=== PATIENT | male | born 1965 | race Caucasian/White ===

== ENCOUNTER 2023-08-14 09:18 | Emergency (ER) | payer OTHER, SELFPAY ==
[2023-08-14 09:59] VITALS: BP 141/89; PULSE 96; RESP 16; TEMP 36.7; O2SAT 93; BMI 36.2
[2023-08-14 10:19] LABS: MANUAL DIFF FLAG NO
[2023-08-14 10:21] LABS: Basophils Percent Auto 0.4 % (0-2); Eosinophils Absolute Auto 0.1 X10*3/uL (0.0-0.4); Eosinophils Percent Auto 0.8 % (0-4); Hemoglobin 15.1 g/dl (14.0-18.0); Imm Gran Abs Auto 0.04 X10*3/uL (0.00-0.03); Imm Gran Pct Auto 0.4 % (0.0-0.4); Lymphocytes Absolute Auto 1.7 X10*3/uL (1.2-4.9); Lymphocytes Percent Auto 15.7 % (20-40); Mean Corpuscular HGB Conc 34.3 g/dl (31.0-36.0); Mean Corpuscular Hemoglobin 32.6 pg (27.0-33.0); Monocytes Absolute Auto 1.1 X10*3/uL (0.1-1.2); Neutrophils Absolute Auto 7.8 x10*3/uL (2.0-8.3); Neutrophils Percent Auto 72.7 % (45-73); Platelet Count 250 X10*3/uL (160-400); Red Blood Count 4.63 X10*6/uL (4.60-5.80); Red Cell Distribution Width 14.4 % (11.0-16.0); White Blood Count 10.7 X10*3/uL (4.8-10.8)
[2023-08-14 10:41] LABS: Alanine Aminotransferase 26 U/L (0-40); Albumin Level 3.9 g/dL (3.5-5.0); Alkaline Phosphatase 88 U/L (39-117); Anion Gap 12 (12-20); Aspartate Amino Transferase 15 U/L (5-37); Bilirubin Total 0.5 mg/dL (0.0-1.0); Blood Urea Nitrogen 12 mg/dL (9-16); C Reactive Protein 6.04 mg/dL (< or = 0.50); Calcium 8.9 mg/dL (8.4-10.2); Carbon Dioxide 27 mmol/L (22-29); Chloride 104 mmol/L (96-108); Estimated Glomerular Filt Rate > 60; Glucose Random 187 mg/dL (60-115); Potassium 3.9 mmol/L (3.3-5.1); Sodium 139 mmol/L (135-145); Total Protein 7.8 g/dL (6.5-8.0)
[2023-08-14 10:59] LABS: Erythrocyte Sedimentation Rate 20 MM/HR (0-15)
[2023-08-14 13:05] VITALS: BP 163/68; PULSE 95; RESP 14; TEMP 36.9; O2SAT 94
--- NOTE | 2023-08-14 13:59 | ED_ITS ---
HPI - General Adult General Chief complaint: Wound/Laceration Stated complaint: lump on back painful Time Seen by Provider: 08/14/23 13:59 History of Present Illness HPI narrative: The patient reports a a lump on his back that he has had for a few years. Over the last several days it has become painful. It has never been painful before. No fever. Related Data Previous Rx's ?Medication ?Instructions ?Recorded amoxicillin 875 mg-potassium 1 tab PO BID #20 tabs 08/14/23 clavulanate 125 mg tablet ibuprofen 600 mg tablet 600 mg PO Q6H PRN pain #14 tabs 08/14/23 Allergies Allergy/AdvReac Type Severity Reaction Status Date / Time lorazepam [From ATIVAN] Allergy Severe ANAPHYLAXIS Verified 08/14/23 10:00 Review of Systems 2 Review of Systems: Yes all other systems are reviewed and are negative [facility] Social History Social History Alcohol intake: current Alcohol intake frequency: 0-2 drinks per day Alcohol type: beer Smoked in Last 30 Days: Yes Substance Use Type: Marijuana Substance Use Frequency: Weekly Advance Directives: No Advance Directives Information Provided: No Do you have a plan to hurt others: No Plan Physical Exam ED Vital Signs: Vital Signs - 24 hr 08/14/23 09:59 08/14/23 13:05 08/14/23 15:48 Temperature 98.1 F 98.4 F 98.2 F Pulse Rate 96 95 80 Respiratory Rate 16 14 14 Blood Pressure 141/89 H 163/68 H 130/70 Pulse Oximetry 93 94 99 Oxygen Delivery Method Room Air Room Air Room Air BMI result Body Mass Index 36.2 Const Other: The patient is a very pleasant 58-year-old who was awake and alert does not appear toxic in any way. [facility] Other: Face is unremarkable, face is symmetrical, mucous membranes moist Eyes Other: Pupils are round equal, conjunctivae are clear Neck Other: Moving his neck easily Resp Effort & Inspection: normal respiratory effort Auscultation: clear to auscultation bilaterally Cardio Rate: regular rate Rhythm: regular rhythm Heart sounds: S1 normal heart sound present and S2 normal heart sound present Back/Spine/Pelvis Other: The patient has an obvious area of swelling at the right upper back in the right paraspinous region at around T8 through T10. The overall area of swelling is fairly large at about 10-12 cm. It is tender. There is a suggestion of fluctuance. Minimal erythema to the overlying skin. Skin Other: Large area of swelling on the back just to the right of the midline at about the T8-T10 level. Swelling is tender somewhat fluctuant. No significant erythema. Neuro Other: The patient is awake and alert with a normal mental status. His neck is supple. He moves his extremities normally. He is neurologically intact. Extrem Other: No peripheral edema Medications Administered Discontinued Medications Generic Name Dose Route Start Last Admin Trade Name Carrillo PRN Reason Stop Dose Admin Amoxicillin/Clavulanate Potassium 875 mg 08/14/23 15:32 08/14/23 15:47 Amoxicillin/Potassium Clav 875 Mg Tablet PO 08/14/23 15:33 875 mg ONCE ONE Administration Ketorolac Tromethamine 30 mg 08/14/23 15:31 08/14/23 15:47 Ketorolac Tromethamine 30 Mg/Ml Vial IM 08/14/23 15:32 30 mg ONCE ONE Administration Lidocaine HCl 10 ml 08/14/23 14:07 08/14/23 15:27 Lidocaine Hcl 1 % 10 Ml Vial INFILTRATI 08/14/23 14:08 10 ml ONCE ONE Administration Procedures Abscess I/D Site: back Side (if applicable): right Local Anesthetic: lidocaine 1% Amount of anesthesia used (mL): 10 Technique: incised with blade Amount of fluid expressed (mL): 50 Sent for culture/gram staining?: Yes Packing used?: [email or web address] Medical Decision Making Medical Decision Making [facility] Narrative: The patient presents with what seems to be a skin abscess his back. He says he has had a lump on the back for several years but it has only been painful for a few days. This seems consistent with an infected cyst. I explained the rationale for an incision and drainage and the patient consented. This was done at the bedside. The skin was prepped with Betadine. I used 10 mL of 1% plain lidocaine 2 anesthetize a large portion of the area. I made a large incision with a #11 blade vertically. At 1st I was surprised that no pus seemed to be flowing. However it became apparent that material within the abscess cavity was thick sebaceous material. I ultimately was able to express a very large amount of foul-smelling and purulent sebaceous material. I then irrigated the abscess cavity. Given how thick the material was it was difficult to be certain that I had completely drained the cavity of material but I ultimately felt I had done as much as I felt comfortable doing and then I placed some iodoform gauze within the cavity. A wound culture was sent. The patient was started on Augmentin. The patient will be referred to the on-call surgeon for further management. Lab Data 08/14/23 10:15 08/14/23 10:15 Labs: Lab Results 08/14/23 Range/Units 10:15 WBC 10.7 (4.8-10.8) X10*3/uL RBC 4.63 (4.60-5.80) X10*6/uL Hgb 15.1 (14.0-18.0) g/dl Hct 44.0 (42.0-52.0) % MCV 95.0 (80.0-98.0) fL MCH 32.6 (27.0-33.0) pg MCHC 34.3 (31.0-36.0) g/dl RDW 14.4 (11.0-16.0) % Plt Count 250 (160-400) X10*3/uL MPV 9.0 L (9.4-12.4) fL Immature Gran % (Auto) 0.4 (0.0-0.4) % Neut % (Auto) 72.7 (45-73) % Lymph % (Auto) 15.7 L (20-40) % [place] % (Auto) 10.0 (2-11) % Eos % (Auto) 0.8 (0-4) % Baso % (Auto) 0.4 (0-2) % Lymph # (Auto) 1.7 (1.2-4.9) X10*3/uL [place] # (Auto) 1.1 (0.1-1.2) X10*3/uL Eos # (Auto) 0.1 (0.0-0.4) X10*3/uL Baso # (Auto) 0.0 (0.0-0.2) X10*3/uL Abs Immat Gran (auto) 0.04 H (0.00-0.03) X10*3/uL Absolute Neuts (auto) 7.8 (2.0-8.3) x10*3/uL Absolute Nucleated RBC 0.000 (0.0-0.012) X10*3/uL Nucleated RBC % (auto) 0.0 (0.0-0.2) /100WBC ESR 20 H (0-15) MM/HR Sodium 139 (135-145) mmol/L Potassium 3.9 (3.3-5.1) mmol/L Chloride 104 (96-108) mmol/L Carbon Dioxide 27 (22-29) mmol/L Anion Gap 12 (12-20) BUN 12 (9-16) mg/dL Creatinine 0.68 (0.5-1.4) mg/dL Estim Creat Clear Calc 163.0 Estimated GFR > 60 Random Glucose 187 H (60-115) mg/dL Calcium 8.9 (8.4-10.2) mg/dL Total Bilirubin 0.5 (0.0-1.0) mg/dL AST 15 (5-37) U/L ALT 26 (0-40) U/L Alkaline Phosphatase 88 (39-117) U/L C-Reactive Protein 6.04 H (< or = 0.50) mg/dL Total Protein 7.8 (6.5-8.0) g/dL Albumin 3.9 (3.5-5.0) g/dL Discharge Plan Discharge Clinical Impression: Infected sebaceous cyst of skin Patient Disposition: Home, Self-Care Instructions: Abscess (ED), Cyst (ED) Additional Instructions: I believe that you had a cyst in your back that we call a sebaceous cyst. Your sebaceous cyst became infected. We made an incision in your back to remove the infected sebaceous material. The abscess cavity was packed with packing gauze. You will need to follow up with a surgeon for additional care this week. Please contact the surgery office provided on Wednesday morning to get a follow up appointment this week for ongoing care. Please change the dressing over the wound at least daily. You may shower. I think the packing material will likely stay in the abscess cavity but if it falls out do not worry about it. Return emergency room if significantly worse. Prescriptions: New amoxicillin-pot clavulanate 875-125 mg tablet 1 tab PO BID Qty: 20 0RF ibuprofen 600 mg tablet 600 mg PO Q6H PRN (Reason: pain) Qty: 14 0RF Referrals: Mitzy Figueroa MD [Physician] - (Infected sebaceous cyst) Interventions: ED Discharge Assessment Last Done: 08/14/23 15:48 Discharge Date/Time: 08/14/23 15:49 Print Language: Korean
[2023-08-14] MEDS: Lidocaine HCl 1 % 10 ML VIAL INFILTRATI (15:27)
[2023-08-14] MEDS: Ketorolac Tromethamine 30 MG/ML VIAL IM (15:47)
[2023-08-14] MEDS: Amoxicillin/Potassium Clav 875 MG TABLET PO (15:47)
[2023-08-14 15:48] VITALS: BP 130/70; PULSE 80; RESP 14; TEMP 36.8; O2SAT 99
== END 2023-08-14 15:49 | disposition home or self-care (01) ==
PROVIDERS: Emergency Provider Emergency Medicine
DX: L02.212 Cutaneous abscess of back [any part, except buttock and flank] (principal)
CPT/HCPCS: 10060; 36415; 80053; 85025; 85652; 86140; 87070; 87205; 99284; J1885